=== PATIENT | male | born 1980 | race Caucasian/White ===

== ENCOUNTER 2018-06-03 06:36 | Day surgery (SDC) | payer BC ==
[2018-06-03] MEDS ORDERED: ONDANSETRON HCL IV 4 MG/2 ML VIAL IVP ONE (06:37)
[2018-06-03] MEDS ORDERED: SEVOFLURANE 250 ML INH ONE (06:37)
[2018-06-03] MEDS ORDERED: FENTANYL PF 100MCG/2ML VIAL IV ONE (06:37)
[2018-06-03] MEDS ORDERED: TRAMADOL HCL 50 MG TABLET PO ONE (06:37)
[2018-06-03] MEDS ORDERED: KETOROLAC 30 MG/ML VIAL IVP ONE (06:37)
[2018-06-03] MEDS ORDERED: BUPIVACAINE 0.25% W/EPI MPF 30ML VIAL IVP ONE (06:37)
[2018-06-03] MEDS ORDERED: SCOPOLAMINE 1 PATCH TDSY TD ONE (06:37)
[2018-06-03] MEDS ORDERED: ACETAMINOPHEN 1,000 MG/100 ML BTL IV ONE (06:37)
[2018-06-03] MEDS ORDERED: LIDOCAINE 1% MDV (10MG/ML) 20ML VIAL SQ ONE (06:37)
[2018-06-03] MEDS ORDERED: PROPOFOL 10 MG/ML VIAL IV ONE (06:37)
[2018-06-03] MEDS ORDERED: MIDAZOLAM HCL 2MG/2ML VIAL IV ONE (06:37)
--- NOTE | 2018-06-03 12:31 | Operative Note ---
DATE OF SURGERY: 06/03/2018 Surgeon: Zack Oates DO PREOPERATIVE DIAGNOSES: 1. Chondromalacia of the right knee. 2. Patellofemoral instability of the right knee. POSTOPERATIVE DIAGNOSES: 1. Chondromalacia of the patella, medial femoral condyle, and lateral femoral condyle of right knee. 2. Patellofemoral instability of right knee. OPERATION: Arthroscopic chondroplasty of the patella, right knee. DESCRIPTION OF PROCEDURE: This 38-year-old male was taken to the operating room and placed in the supine position on the operating room table. General anesthetic was administered. The right lower extremity was elevated. It was exsanguinated and the tourniquet inflated to 300 mmHg. Arthroscopic knee lynn applied. Right knee prepped with Hibiclens and draped in the usual sterile fashion. An inferolateral portal was established for the 4 mm arthroscope and initial evaluation of the joint demonstrated loose articular cartilage fragments floating free within the joint and the suprapatellar pouch and medial and lateral gutters in both the medial and lateral compartments. These were evacuated from the joint. The patella demonstrated grade 3 changes in mostly the medial facet of the patella but all areas were affected to some degree, the remainder showing grade 2 changes. The trochlea had only mild scuffing of the articular cartilage there. I did not find any cracked or broken articular cartilage on the trochlea. We noticed significant flattening of the trochlear groove, and lateral tracking of the patella I would say was mild on arthroscopic examination today. The [id number] medial portal chondroplasty was performed to stabilizer the articular cartilage of the median ridge and medial facet mostly. This was then re-probed and confirmed to be stable. I did not clearly visualize any areas of grade 4 lesions. The medial compartment was subsequently examined and there was some minimal scuffing of the medial meniscus at the anterior horn and at the posterior root. There was no evidence of tearing or detachment of the meniscus in either of these locations. There was very minimal grade 2 chondromalacia of the weightbearing surface of the medial femoral condyle as well but there were no cracks or fissures in the articular cartilage and it was not further disturbed. The intracondylar notch was examined and found to be normal. The lateral compartment was entered and some scuffing of the superior aspect of the lateral meniscus was present near the meniscosynovial junction and at the entrance of the popliteal hiatus but this was very superficial. No tear in the undersurface was present. We were not able to penetrate the meniscus with the probe. The meniscus was stable and did not sublux. The patient also demonstrated mild grade 2 chondromalacia of the lateral femoral condyle on the weightbearing surface as well and some posteriorly on the condyle was also noted. Again, there was no disruption or looser flaking portions of articular cartilage visualized on the articular cartilage of the lateral femoral condyle and it was not further disturbed. The joint was then copiously irrigated and suctioned removing all debris from the joint. The wound was suctioned and the instruments removed. Portals infiltrated with 0.25% Marcaine with epinephrine. Sterile dressings were applied. Tourniquet and knee lynn released and the patient taken to the recovery room in satisfactory condition. GROSS PATHOLOGY: This patient demonstrated grade 3 chondromalacia of the patella and minor grade 2 chondromalacia of both the medial and lateral femoral condyles as discussed above. There was some scuffing of the medial meniscus and the lateral meniscus as discussed above but no evidence of tearing of the meniscus was identified. There was a flat patellar trochlea, and some lateral riding of the patella was identified. This was mild. CC: DO ASHLEY Galo
== END 2018-06-03 09:15 | disposition home or self-care (01) ==
LOC: SUR 06:36
PROVIDERS: ATTEND Orthopaedic Surgery
DX: M22.41 Chondromalacia patellae, right knee (principal); M23.51 Chronic instability of knee, right knee
CPT/HCPCS: J1885; J2405

== ENCOUNTER 2018-10-02 11:39 | Day surgery (SDC) | payer BC ==
[~2018-10-02 11:39] MED LIST: ACETAMINOPHEN 1,000 MG/100 ML BTL IV ONE
[2018-10-02] MEDS ORDERED: DEXAMETHASONE 4 MG/ML 1ML VIAL IVP ONE (11:40)
[2018-10-02] MEDS ORDERED: LIDOCAINE 2% MDV (20MG/ML) 20ML VIAL IV ONE (11:40)
[2018-10-02] MEDS ORDERED: BUPIVACAINE 0.25% W/EPI MPF 30ML VIAL IVP ONE (11:40)
[2018-10-02] MEDS ORDERED: PROPOFOL 10 MG/ML VIAL IV ONE (11:40)
[2018-10-02] MEDS ORDERED: SEVOFLURANE 250 ML INH ONE (11:40)
[2018-10-02] MEDS ORDERED: MIDAZOLAM HCL 2MG/2ML VIAL IV ONE (11:40)
[2018-10-02] MEDS ORDERED: FENTANYL PF 100MCG/2ML VIAL IV ONE (11:40)
[2018-10-02] MEDS ORDERED: ONDANSETRON HCL IV 4 MG/2 ML VIAL IVP ONE (11:40)
--- NOTE | 2018-10-03 09:50 | Operative Note ---
DATE OF SURGERY: 10/02/2018 Surgeon: Zack Oates DO PREOPERATIVE DIAGNOSIS: Acromioclavicular arthrosis of the right shoulder. POSTOPERATIVE DIAGNOSIS: Acromioclavicular arthrosis of the right shoulder. OPERATION: Shirley procedure of the right shoulder (resection of right distal clavicle). DESCRIPTION OF PROCEDURE: This 38-year-old male was taken to the operating room and placed in the supine position on the operating room table. General anesthetic was administered. After satisfactory anesthetic, he was placed in the beach chair position with all bony prominences well padded and the head well secured. The right shoulder was prepped with Hibiclens and draped in the usual sterile fashion. An incision was made in Vishal's lines overlying the acromioclavicular joint. Dissection carried down through the skin and subcutaneous tissue. Total length of the incision approximately 3 cm. The subcutaneous tissue divided. Joint capsule easily identified and a "T" incision was made in the joint capsule and the ends of the periosteum and joint capsule were elevated off the distal clavicle to expose the joint. We then used an oscillating saw to resect the distal 0.75 cm of the distal clavicle. Power rasp was used to further smooth and contour the cut edge of the bone. There was also an osteophyte on the posterior aspect of the acromion, and this was smoothed with the power rasp as well. Remnants of the disrupted articular disc were removed from the acromioclavicular joint. The wound was copiously irrigated with lactated Ringer's solution. The joint capsule was then reapproximated with #1 Vicryl and the subcutaneous tissue closed with 3-0 Vicryl and the skin closed with a running interlocking 4-0 nylon suture. Sterile dressings were then applied with a sling and the patient taken to the recovery room in satisfactory condition. GROSS PATHOLOGY: This patient demonstrated some degenerative changes at the acromioclavicular joint as well as disruption of the acromioclavicular disc as described. The joint was infiltrated with 0.25% Marcaine with epinephrine at the completion of the procedure for some relief of discomfort. CC: DO ASHLEY Galo
== END 2018-10-02 14:45 | disposition home or self-care (01) ==
LOC: SUR 11:39
PROVIDERS: ATTEND Orthopaedic Surgery
DX: M19.011 Primary osteoarthritis, right shoulder (principal); E78.00 Pure hypercholesterolemia, unspecified; G47.33 Obstructive sleep apnea (adult) (pediatric)
CPT/HCPCS: J2405